=== PATIENT | male | born 1990 | race Caucasian/White ===

== ENCOUNTER 2017-03-19 20:42 | Emergency (ER) | payer BC ==
--- NOTE | 2017-03-19 21:37 | EDM.PDOC ---
ED HPI GENERAL MEDICAL PROBLEM - General Chief Complaint: ENT Problem Stated Complaint: METAL IN HIS EYE Time Seen by Provider: 03/19/17 21:09 Source of Information: Reports: Patient History Limitations: Reports: No Limitations - History of Present Illness INITIAL COMMENTS - FREE TEXT/NARRATIVE: The patient thinks a few days ago he may have gotten metal in his right eye. He rinsed some out but he feels there is one left. 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 He has eye pain but no decreased vision. Onset: Sudden Duration: Day(s): Location: Reports: Head (Right eye) Quality: Reports: Ache Severity: Moderate Improves with: Reports: None Worsens with: Reports: None Associated Symptoms: Reports: No Other Symptoms Right Eye Pain Score (Numeric/FACES): 1 - Related Data Allergies Allergy/AdvReac Type Severity Reaction Status Date / Time No Known Allergies Allergy Verified 03/19/17 20:51 Home Meds: Home Meds Ciprofloxacin [Ciloxan 0.3% Ophth Soln] 1 drop EYERT Q4H #1 bottle 03/19/17 [Rx] Past Medical History - Past Surgical History HEENT Surgical History: Reports: Oral Surgery Other HEENT Surgeries/Procedures: [place] teeth Musculoskeletal Surgical History: Reports: Other (See Below) Other Musculoskeletal Surgeries/Procedures:: Finger recontruction Social & Family History - Tobacco Use Smoking Status *Q: Current Every Day Smoker Years of Tobacco use: 8 Packs/Tins Daily: 0.5 - Recreational Drug Use Recreational Drug Use: Yes Drug Use in Last 12 Months: Yes Recreational Drug Type: Reports: Marijuana/Hashish ED ROS ENT - Review of Systems Review Of Systems: See Below Constitutional: Reports: No Symptoms HEENT: Reports: Eye Pain Respiratory: Reports: No Symptoms Cardiovascular: Reports: No Symptoms Endocrine: Reports: No Symptoms GI/Abdominal: Reports: No Symptoms : Reports: No Symptoms Musculoskeletal: Reports: No Symptoms ED EXAM, ENT - Physical Exam Exam: See Below Exam Limited By: No Limitations General Appearance: Alert, No Apparent Distress Eye Exam: Right Eye: Conjunctival Injection, Corneal Abrasion, Foreign Body ( Metal with a rust ring) Ears: Normal External Exam Nose: Normal Inspection Head: Atraumatic, Normocephalic Neck: Normal Inspection Respiratory/Chest: No Respiratory Distress ED EYE PROCEDURE - Eye Procedure Alcaine Drops Administered: Yes (Proparacaine) Eye FB Removal: Other (Removed with an eye spud) Eye Irrigated w/ Saline (ccs): 20 Antibiotic Oinment/Drps Admin: Right Eye Progress: I also had to remove a rust ring. It was partially removed. Course - Vital Signs Last Recorded V/S: Last Vital Signs Temp 98.0 F 03/19/17 20:52 Pulse 104 H 03/19/17 20:52 Resp 16 03/19/17 20:52 BP 164/92 H 03/19/17 20:52 Pulse Ox 98 03/19/17 20:52 - Re-Assessments/Exams Free Text/Narrative Re-Assessment/Exam: 03/19/17 21:36 He had some metal and a rust ring. I was only able to remove some of the rust ring. Departure - Departure Time of Disposition: 21:40 Disposition: Home, Self-Care 01 Condition: Good Clinical Impression: Corneal rust ring of right eye Foreign body of right eye Qualifiers: Encounter type: initial encounter Qualified Code(s): T15.91XA - Foreign body on external eye, part unspecified, right eye, initial encounter Corneal abrasion Qualifiers: Encounter type: initial encounter Laterality: right Qualified Code(s): S05.01XA - Injury of conjunctiva and corneal abrasion without foreign body, right eye, initial encounter - Discharge Information Prescriptions: Ciprofloxacin [Ciloxan 0.3% Ophth Soln] 1 drop EYERT Q4H #1 bottle Referrals: PCP,None [Primary Care Provider] - Additional Instructions: Use the ciprofloxacin drops 1 drop every 4 hours while awake for 5 days. Please return if you are worse or follow up with an strip cutter.
== END 2017-03-19 21:50 | disposition home or self-care (01) ==
LOC: JD.ED 20:42
DX: T15.01XA Foreign body in cornea, right eye, initial encounter (principal); F17.210 Nicotine dependence, cigarettes, uncomplicated
CPT/HCPCS: 65220; 65222; 99283-25

== ENCOUNTER 2017-05-31 12:20 | Emergency (ER) | payer BC ==
--- NOTE | 2017-05-31 13:12 | EDM.PDOC ---
ED HPI GENERAL MEDICAL PROBLEM - General Chief Complaint: Eye Problems Stated Complaint: FB IN RIGHT EYE Time Seen by Provider: 05/31/17 12:56 Source of Information: Reports: Patient, RN Notes Reviewed - History of Present Illness INITIAL COMMENTS - FREE TEXT/NARRATIVE: 27-year-old male comes in with foreign body sensation of the right eye. He felt something drop into his eye well working underneath a car last evening. The eye feels scratchy with blinking. He states was very difficult to sleep during the night due to the continuous irritation which also continues this morning. He does not wear contacts. Left Eye Pain Score (Numeric/FACES): 1 - Related Data Allergies Allergy/AdvReac Type Severity Reaction Status Date / Time No Known Allergies Allergy Verified 05/31/17 12:27 Home Meds: Home Meds Ciprofloxacin [Ciloxan 0.3% Ophth Soln] 1 drop EYERT ASDIRECTED 05/31/17 [ History] Past Medical History - Past Surgical History HEENT Surgical History: Reports: Oral Surgery Other HEENT Surgeries/Procedures: [place] teeth Musculoskeletal Surgical History: Reports: Other (See Below) Other Musculoskeletal Surgeries/Procedures:: Finger recontruction Social & Family History - Tobacco Use Smoking Status *Q: Current Every Day Smoker Years of Tobacco use: 7 Packs/Tins Daily: 5 - Caffeine Use Caffeine Use: Reports: Energy Drinks - Recreational Drug Use Recreational Drug Use: Yes Drug Use in Last 12 Months: No Recreational Drug Type: Reports: Marijuana/Hashish Recreational Drug Use Frequency: Daily ED ROS GENERAL - Review of Systems Review Of Systems: See Below Constitutional: Reports: No Symptoms HEENT: Reports: Eye Pain Respiratory: Reports: No Symptoms (Right eye) Cardiovascular: Reports: No Symptoms GI/Abdominal: Reports: No Symptoms Musculoskeletal: Reports: No Symptoms Skin: Denies: Rash ED EXAM GENERAL W FULL EYE - Physical Exam Exam: See Below Eye Exam: Right Eye: Foreign Body, Bilateral Eye: PERRL Conjunctiva & Sclera: Right: Injected Cornea Exam: Right: Foreign Body (Small dark piece of metal or dirt medial right cornea) Head: Atraumatic Respiratory/Chest: No Respiratory Distress, Lungs Clear Cardiovascular: Regular Rate, Rhythm Neurological: Oriented Skin Exam: Warm, Dry, Normal Color, No Rash Course - Vital Signs Last Recorded V/S: Last Vital Signs Temp 97.5 F 05/31/17 12:29 Pulse 99 04/04/18 12:29 Resp 18 05/31/17 12:29 BP 149/94 H 05/31/17 12:29 Pulse Ox 97 05/31/17 12:29 - Re-Assessments/Exams Free Text/Narrative Re-Assessment/Exam: 05/31/17 15:37 Right eye was anesthetized with topical proparacaine drops. Foreign body removed with "eye spud" Pt tolerated procedure well. Discharge instructions as documented Departure - Departure Time of Disposition: 13:11 Disposition: Home, Self-Care 01 Condition: Fair Clinical Impression: Foreign body of right eye Qualifiers: Encounter type: initial encounter Qualified Code(s): T15.91XA - Foreign body on external eye, part unspecified, right eye, initial encounter - Discharge Information Instructions: Eye Foreign Body, [id number] Referrals: PCP,None [Primary Care Provider] - Forms: ED Department Discharge Additional Instructions: This will take 1-2 days to heal, alternate Tylenol and ibuprofen as needed, you may use previously prescribed antibiotic eyedrops for 2-3 days, follow-up with your eye doctor as needed, return to ED as needed.
== END 2017-05-31 13:25 | disposition home or self-care (01) ==
LOC: JD.ED 12:20
DX: T15.01XA Foreign body in cornea, right eye, initial encounter (principal); F17.210 Nicotine dependence, cigarettes, uncomplicated
CPT/HCPCS: 65205; 99282-25; 99283